=== PATIENT | female | born 1935 | race African-American/Black ===

== ENCOUNTER 2016-04-15 11:29 | Observation (INO) | payer MEDICARE, MEDICAID ==
[2016-04-15] MEDS ORDERED: ASPIRIN 81 MG TABLET, CHEWABLE PO ONE (11:35)
--- NOTE | 2016-04-15 11:53 | ER Document Report ---
ED Medical Screen (RME) - General Stated Complaint: CHEST TIGHTNESS Time seen by provider: 11:51 Mode of Arrival: Ambulatory Information source: Patient Notes: 80-year-old female presents to ED for chest pressure running down her left arm last night for the about 30 minutes. She denies pain pressure or shortness of breath at this time. She states she has a history of having 2 heart attacks the last one was in 06. She states she had a stent at that time. I have greeted and performed a rapid initial assessment of this patient. A comprehensive ED assessment and evaluation of the patient, analysis of test results and completion of medical decision making process will be conducted by an additional ED providers. TRAVEL OUTSIDE OF THE [place] IN LAST 30 DAYS: No - Related Data Allergies/Adverse Reactions: hydroxyzine [From Vistaril] Adverse Reaction (Verified 11/20/15 14:31) Hallucinations Past Medical History - Past Medical History Cardiac Medical History: Reports: Hx Heart Attack - X2, Hx Hypercholesterolemia , Hx Hypertension - MEDICATED Pulmonary Medical History: Denies: Hx Asthma Neurological Medical History: Denies: Hx Cerebrovascular Accident, Hx Seizures GI Medical History: Denies: Hx Hepatitis, Hx Hiatal Hernia, Hx Ulcer Infectious Medical History: Denies: Hx Hepatitis Past Surgical History: Denies: Hx Hysterectomy, Hx Mastectomy, Hx Open Heart Surgery, Hx Pacemaker - Immunizations Hx Diphtheria, Pertussis, Tetanus Vaccination: Yes
[2016-04-15 12:16] LABS: ABSOLUTE EOSINOPHILS # (AUTO) 0.2 10^3/uL (0.0-0.6); ABSOLUTE LYMPHOCYTES (AUTO) 1.1 10^3/uL (0.5-4.7); ABSOLUTE MONOCYTES (AUTO) 0.3 10^3/uL (0.1-1.4); ABSOLUTE NEUT (AUTO) 3.8 10^3/uL (1.7-8.2); BASOPHILS % (AUTO) 0.8 % (0-2); EOSINOPHILS % (AUTO) 2.8 % (0-6); HEMATOCRIT 39.2 % (36.0-47.0); HEMOGLOBIN 12.9 g/dL (12.0-15.5); HGB HCT DIFFERENCE -0.5; LYMPHOCYTES % (AUTO) 19.9 % (13-45); MEAN CORPUSCULAR HEMOGLOBIN 28.3 pg (27.0-33.4); MEAN CORPUSCULAR HGB CONC 32.8 g/dL (32.0-36.0); MEAN CORPUSCULAR VOLUME 86 fl (80-97); MONOCYTES % (AUTO) 5.9 % (3-13); RED BLOOD COUNT 4.54 10^6/uL (3.72-5.28); RED CELL DISTRIBUTION WIDTH 13.9 % (11.5-14.0); SEGMENTED NEUTROPHILS % (AUTO) 70.6 % (42-78); WHITE BLOOD COUNT 5.4 10^3/uL (4.0-10.5)
--- NOTE | 2016-04-15 12:23 | ER Document Report ---
ED Cardiac - General Chief Complaint: Chest Pain Stated Complaint: CHEST TIGHTNESS Mode of Arrival: Ambulatory Notes: This is an 80-year-old female with prior medical history significant for coronary artery disease, last stent placed in 2005, who presents complaining of 2-3 weeks of episodic chest pain. She states the pain is very reminiscent of her prior [place]. She states it is a dull pressure across the left anterior chest and radiating down her left arm. She states each episode lasts about 30 minutes. She takes aspirin when these episodes occur and it seems to resolve spontaneously. She does not use nitroglycerin at home. She was seen at her doctor's office this morning and referred to the ER for further evaluation. She is pain-free at this time. TRAVEL OUTSIDE OF THE [place] IN LAST 30 DAYS: No - Related Data Allergies/Adverse Reactions: hydroxyzine [From Vistaril] Adverse Reaction (Verified 04/15/16 11:53) Hallucinations Past Medical History - General Information source: Patient - Social History Smoking Status: Never Smoker Chew tobacco use (# tins/day): No Frequency of alcohol use: None Drug Abuse: None Family History: Reviewed & Not Pertinent Patient has suicidal ideation: No Patient has homicidal ideation: No - Past Medical History Cardiac Medical History: Reports: Hx Heart Attack - X2, Hx Hypercholesterolemia , Hx Hypertension - MEDICATED Pulmonary Medical History: Denies: Hx Asthma Neurological Medical History: Denies: Hx Cerebrovascular Accident, Hx Seizures Renal/ Medical History: Denies: Hx Peritoneal Dialysis GI Medical History: Denies: Hx Hepatitis, Hx Hiatal Hernia, Hx Ulcer Infectious Medical History: Denies: Hx Hepatitis Past Surgical History: Denies: Hx Hysterectomy, Hx Mastectomy, Hx Open Heart Surgery, Hx Pacemaker - Immunizations Hx Diphtheria, Pertussis, Tetanus Vaccination: Yes Review of Systems - Review of Systems Constitutional: denies: Fever EENT: denies: Throat pain Cardiovascular: denies: Edema Gastrointestinal: denies: Abdominal pain Genitourinary: denies: Flank pain Musculoskeletal: denies: Leg swelling Skin: denies: Rash Neurological/Psychological: denies: Weakness, Numbness, Tingling Physical Exam - Vital signs Vitals: Temp Pulse Resp BP Pulse Ox 97.8 F 64 19 196/84 H 100 04/15/16 11:49 04/15/16 11:49 04/15/16 11:49 04/15/16 11:49 04/15/16 11:49 - Notes Notes: GENERAL: Pleasant, frail elderly female who is well-appearing and in no acute distress. HEAD: Atraumatic, normocephalic. EYES: Pupils equal round and reactive to light, extraocular movements intact, sclera anicteric, conjunctiva are normal. ENT: nares patent, oropharynx clear without exudates. Moist mucous membranes. NECK: Normal range of motion, supple without lymphadenopathy or JVD. LUNGS: Breath sounds clear to auscultation bilaterally and equal. No wheezes rales or rhonchi. HEART: Regular rate and rhythm without murmurs, rubs or gallops. ABDOMEN: Soft, nontender, normoactive bowel sounds. No guarding, no rebound. No masses appreciated. EXTREMITIES: Normal range of motion, no pitting or edema. No clubbing or cyanosis. NEUROLOGICAL: Cranial nerves II through XII grossly intact. Normal speech, normal gait. PSYCH: Normal mood, normal affect. SKIN: Warm, Dry, normal turgor, no rashes or lesions noted. Course - Vital Signs Vital signs: Temp Pulse Resp BP Pulse Ox 97.8 F 64 19 196/84 H 100 04/15/16 11:49 04/15/16 11:49 04/15/16 11:49 04/15/16 11:49 04/15/16 12:29 - Laboratory Result Diagrams: 04/15/16 12:00 04/15/16 12:00 Laboratory results interpreted by me: 04/15/16 12:00 Est GFR (Non-Af Amer) 59 L Creatine Kinase 142 H - EKG Interpretation by Pa EKG shows normal: Sinus rhythm Heart block present: 1st Degree - Similar in appearance to prior EKG from Discharge - Discharge Clinical Impression: Chest pain Qualifiers: Chest pain type: unspecified Qualified Code(s): R07.9 - Chest pain, unspecified Condition: Good Disposition: ADMITTED OBSERVATION Admitting Provider: [facility] Unit Admitted: Telemetry
[2016-04-15 12:45] LABS: ALANINE AMINOTRANSFERASE 17 U/L (9-52); ALBUMIN 3.9 g/dL (3.5-5.0); ALKALINE PHOSPHATASE 72 U/L (38-126); ANION GAP 9 (5-19); ASPARTATE AMINO TRANSFERASE 24 U/L (14-36); BILIRUBIN,TOTAL 0.6 mg/dL (0.2-1.3); BLOOD UREA NITROGEN 10 mg/dL (7-20); CALCIUM 9.4 mg/dL (8.4-10.2); CARBON DIOXIDE 27 mmol/L (22-30); CHLORIDE 103 mmol/L (98-107); CREATINE KINASE 142 U/L (30-135); CREATININE RESULT 0.92 mg/dL (0.52-1.25); GLUCOSE 90 mg/dL (75-110); LIPASE 158.2 U/L (23-300); MAGNESIUM 2.1 mg/dL (1.6-2.3); POTASSIUM 4.2 mmol/L (3.6-5.0); SODIUM 139.4 mmol/L (137-145); TOTAL PROTEIN 7.1 g/dL (6.3-8.2)
[2016-04-15 12:54] LABS: CREATINE KINASE MB 1.28 ng/mL (<4.55)
--- NOTE | 2016-04-15 12:56 | EKG REPORT ---
SEVERITY:- ABNORMAL ECG - SINUS RHYTHM FIRST DEGREE AV BLOCK PROBABLE INFERIOR INFARCT, AGE INDETERMINATE NONSPECIFIC ST-T CHANGES ANTEROLAT LEADS : Confirmed by: Agustín Murguia MD 15-Apr-2016 12:55:23
[2016-04-15 12:57] LABS: TROPONIN I < 0.012 ng/mL
[2016-04-15] MEDS ORDERED: (PENDING PHARMACY ID) (Carvedilol [Coreg 25 Mg Tablet] 1 TAB) PO SCH (13:45)
[2016-04-15 14:20] LABS: PROTHROMBIN TIME 13.4 SEC (11.4-15.4)
[2016-04-15 14:21] LABS: PARTIAL THROMBOPLASTIN TIME 29.9 SEC (23.5-35.8)
[2016-04-15] MEDS ORDERED: LOSARTAN POTASSIUM 50 MG TABLET PO ONE (14:30)
[2016-04-15] MEDS ORDERED: ASPIRIN 81 MG TABLET, ENT COATED PO ONE (14:30)
[2016-04-15] MEDS ORDERED: CARVEDILOL 12.5 MG TABLET PO ONE (15:00)
--- NOTE | 2016-04-15 17:57 | XCELERA REPORT ---
[address] [address] Transthoracic Echocardiogram Report Name: ADAN GARDUNO Age: 80 yrs Gender: Female : 1935 Patient Status: Inpatient Patient Location: \S\16\S\A Study Date: 04/15/2016 02:40 PM Height: 63 in Weight: 113 lb BSA: 1.5 m2 Procedure: A two-dimensional transthoracic echocardiogram with color flow and Doppler was performed. Study Quality: Fair. Reason For Study: CP History: Chest pain. Ordering Physician: FISH SEPULVEDA Performed By: Alexus Cooley Interpretation Summary The left ventricle is normal in size. There is normal left ventricular wall thickness. LV EF is 65% Left ventricular systolic function is normal. Doppler measurements suggest impaired left ventricular relaxation, which is associated with grade I/IV or mild diastolic dysfunction The left ventricular wall motion is normal. There is no thrombus. The left atrial size is normal. There is no evidence of mitral valve prolapse. There is no vegetation seen on the mitral valve. There is no mitral valve stenosis. There is a moderate amount of mitral regurgitation The aortic valve is mildly calcified There is no aortic valvular vegetation. There is no aortic valve stenosis There is no LVOT obstruction. There is a mild amount of aortic regurgitation There is no tricuspid stenosis. There is a mild amount of tricuspid regurgitation Right ventricular systolic pressure is normal. RVSP is 27 mm of Hg , with RA mean of 5. There is no pericardial effusion. MMode/2D Measurements \T\ Calculations RVDd: 2.3 cm LVIDd: 4.1 cm FS: 35.2 % Ao root diam: 2.9 cm IVSd: 0.96 cm LVIDs: 2.7 cm EDV(Teich): 74.0 ml LVPWd: 0.94 cmESV(Teich): 25.9 ml Ao root area: 6.6 cm2 EF(Teich): 65.0 % LA dimension: 3.0 cm LVOT diam: 2.0 cm LVOT area: 3.2 cm2 Doppler Measurements \T\ Calculations MV E max mayuri: MV P1/2t max mayuri: Ao V2 max: AI max mayuri: 59.0 cm/sec 59.0 cm/sec 107.3 cm/sec 400.1 cm/sec MV A max mayuri: MV P1/2t: 66.8 msec Ao max PG: AI max P.0 cm/sec MVA(P1/2t): 3.3 cm2 4.6 mmHg 64.0 mmHg MV E/A: 0.69 MV dec slope: JAYJAY(V,D): 2.7 cm2 AI dec slope: 258.6 cm/sec2 199.8 cm/sec2 MV dec time: AI P1/2t: 0.24 sec 586.6 msec LV V1 max PG: PA V2 max: TR max mayuri: 3.4 mmHg 59.3 cm/sec 231.9 cm/sec LV V1 max: PA max P.4 mmHg TR max P.5 cm/sec 21.5 mmHg Left Ventricle The left ventricle is normal in size. There is normal left ventricular wall thickness. LV EF is 65%. Left ventricular systolic function is normal. Doppler measurements suggest impaired left ventricular relaxation, which is associated with grade I/IV or mild diastolic dysfunction. The left ventricular wall motion is normal. There is no thrombus. Right Ventricle The right ventricle is normal in size and function. Atria The right atrium is normal. The left atrial size is normal. Mitral Valve There is no evidence of mitral valve prolapse. There is no vegetation seen on the mitral valve. There is no mitral valve stenosis. There is a moderate amount of mitral regurgitation. Aortic Valve The aortic valve is trileaflet. The aortic valve opens well. The aortic valve is mildly calcified. There is no aortic valvular vegetation. There is no aortic valve stenosis. There is no LVOT obstruction. There is a mild amount of aortic regurgitation. Tricuspid Valve There is no tricuspid stenosis. There is a mild amount of tricuspid regurgitation. Right ventricular systolic pressure is normal. RVSP is 27 mm of Hg , with RA mean of 5. Pulmonic Valve There is no pulmonic valvular stenosis. There is no pulmonic valvular regurgitation. Great Vessels The aortic root is normal size. Effusions There is no pericardial effusion. : FISH SEPULVEDA > Kandi Sandhu
[2016-04-15 20:25] LABS: CREATINE KINASE MB 1.05 ng/mL (<4.55)
[2016-04-15 20:29] LABS: TROPONIN I < 0.012 ng/mL
[2016-04-15] MEDS: CARVEDILOL 12.5 MG TABLET PO SCH (21:57)
[2016-04-15] MEDS: SIMVASTATIN 40 MG TABLET PO SCH (21:58)
[2016-04-16 02:37] LABS: ABSOLUTE BASOPHILS # (AUTO) 0.1 10^3/uL (0.0-0.2); ABSOLUTE EOSINOPHILS # (AUTO) 0.1 10^3/uL (0.0-0.6); ABSOLUTE LYMPHOCYTES (AUTO) 0.8 10^3/uL (0.5-4.7); ABSOLUTE MONOCYTES (AUTO) 0.3 10^3/uL (0.1-1.4); ABSOLUTE NEUT (AUTO) 3.5 10^3/uL (1.7-8.2); BASOPHILS % (AUTO) 1.4 % (0-2); EOSINOPHILS % (AUTO) 2.8 % (0-6); HEMATOCRIT 34.7 % (36.0-47.0); HEMOGLOBIN 11.5 g/dL (12.0-15.5); HGB HCT DIFFERENCE -0.2; LYMPHOCYTES % (AUTO) 16.8 % (13-45); MEAN CORPUSCULAR HEMOGLOBIN 28.2 pg (27.0-33.4); MEAN CORPUSCULAR HGB CONC 33.1 g/dL (32.0-36.0); MEAN CORPUSCULAR VOLUME 85 fl (80-97); MONOCYTES % (AUTO) 5.4 % (3-13); RED BLOOD COUNT 4.08 10^6/uL (3.72-5.28); RED CELL DISTRIBUTION WIDTH 13.7 % (11.5-14.0); SEGMENTED NEUTROPHILS % (AUTO) 73.6 % (42-78); WHITE BLOOD COUNT 4.8 10^3/uL (4.0-10.5)
[2016-04-16 03:00] LABS: ANION GAP 9 (5-19); BLOOD UREA NITROGEN 14 mg/dL (7-20); CALCIUM 8.9 mg/dL (8.4-10.2); CARBON DIOXIDE 27 mmol/L (22-30); CHLORIDE 104 mmol/L (98-107); CREATININE RESULT 0.86 mg/dL (0.52-1.25); GLUCOSE 99 mg/dL (75-110); POTASSIUM 3.9 mmol/L (3.6-5.0); SODIUM 139.9 mmol/L (137-145)
[2016-04-16 03:11] LABS: CREATINE KINASE MB 0.77 ng/mL (<4.55)
[2016-04-16 03:13] LABS: TROPONIN I < 0.012 ng/mL
[2016-04-16] MEDS: ASPIRIN 81 MG TABLET, ENT COATED PO SCH (09:50)
[2016-04-16] MEDS: ENOXAPARIN SODIUM INJ 40 MG/0.4 ML DISP.SYRIN SUBCUT SCH (09:50)
[2016-04-16] MEDS: CARVEDILOL 12.5 MG TABLET PO SCH ×2 (09:51→22:42)
[2016-04-16] MEDS: LOSARTAN POTASSIUM 50 MG TABLET PO SCH (09:52)
--- NOTE | 2016-04-16 10:55 | EKG REPORT ---
SEVERITY:- ABNORMAL ECG - SINUS RHYTHM PROBABLE INFERIOR INFARCT, OLD CONSIDER ANTEROSEPTAL INFARCT LATERAL LEADS ARE ALSO INVOLVED : Confirmed by: Agustín Murguia MD 16-Apr-2016 10:54:55
--- NOTE | 2016-04-16 17:45 | PDOC H&P ---
History of Present Illness Admission Date/PCP: 04/15/16 14:15 FISH SEPULVEDA, History of Present Illness: ADAN GARDUNO is a 80 year old female with history of coronary artery disease , she came to the office she complained of chest pressure with radiation to the left upper extremities. She stated that the chest pressure is similar to the chest pressure. She had the last time when she had myocardial infarction. A 12 -lead EKG was done in the office it showed sinus rhythm with Q-wave in inferior leads and nonspecific ST segment changes in precordial leads. She was advised to go to the emergency room for further evaluation. She was seen in emergency room she was evaluated and Hospital admission was advised. Past Medical History Cardiac Medical History: Reports: Myocardial Infarction - X2, Hyperlipidema, Hypertension - MEDICATED Past Surgical History Past Surgical History: Reports: Coronary Stent Social History Information Source: Patient Smoking Status: Never Smoker Frequency of Alcohol Use: None Hx Recreational Drug Use: No Hx Prescription Drug Abuse: No - Advance Directive Resuscitation Status: Full Code Family History Family History: Reviewed & Not Pertinent Parental Family History Reviewed: Yes Children Family History Reviewed: Yes Sibling(s) Family History Reviewed.: Yes Medication/Allergy Home Medications: Aspirin [Ecotrin] 81 mg PO DAILY PRN 04/15/16 Carvedilol [Coreg 25 mg Tablet] 25 mg PO Q12 04/15/16 Losartan Potassium [Cozaar 100 mg Tablet] 100 mg PO DAILY 04/15/16 Simvastatin [Simvastatin] 40 mg PO QHS 04/15/16 Allergies/Adverse Reactions: hydroxyzine [From Vistaril] Adverse Reaction (Verified 04/15/16 11:53) Hallucinations Review of Systems Constitutional: ABSENT: chills, fever(s), headache(s), weight gain, weight loss Eyes: ABSENT: visual disturbances Ears: ABSENT: hearing changes Cardiovascular: PRESENT: chest pain. ABSENT: as per HPI, dyspnea on exertion, edema, orthropnea, palpitations, other Respiratory: ABSENT: cough, hemoptysis Gastrointestinal: ABSENT: abdominal pain, constipation, diarrhea, hematemesis, hematochezia, nausea, vomiting Genitourinary: ABSENT: dysuria, hematuria Musculoskeletal: ABSENT: joint swelling Integumentary: ABSENT: rash, wounds Neurological: ABSENT: abnormal gait, abnormal speech, confusion, dizziness, focal weakness, syncope Psychiatric: ABSENT: anxiety, depression, homidical ideation, suicidal ideation Endocrine: ABSENT: cold intolerance, heat intolerance, menstrual abnormalities, polydipsia, polyuria Hematologic/Lymphatic: ABSENT: easy bleeding, easy bruising, lymphadenopathy Physical Exam Vital Signs: Temp Pulse Resp BP Pulse Ox 98.4 F 75 20 129/62 H 99 04/16/16 12:07 04/16/16 14:00 04/16/16 12:07 04/16/16 12:07 04/16/16 12:07 Intake & Output 04/15/16 04/16/16 04/17/16 06:59 06:59 06:59 Intake Total 833 660 Output Total 0 150 Balance 833 510 Weight 52.2 kg General appearance: PRESENT: no acute distress, well-developed, well-nourished Head exam: PRESENT: atraumatic, normocephalic Eye exam: PRESENT: conjunctiva pink, EOMI, PERRLA Ear exam: PRESENT: normal external ear exam Mouth exam: PRESENT: moist, tongue midline Neck exam: PRESENT: full ROM Respiratory exam: PRESENT: clear to auscultation lamar Cardiovascular exam: PRESENT: RRR, +S1, +S2 Pulses: PRESENT: normal dorsalis pedis pul, +2 pedal pulses bilateral Vascular exam: PRESENT: normal capillary refill GI/Abdominal exam: PRESENT: normal bowel sounds, soft Rectal exam: PRESENT: deferred Neurological exam: PRESENT: alert, awake, oriented to person, oriented to place , oriented to time, oriented to situation, CN II-XII grossly intact Psychiatric exam: PRESENT: appropriate affect, normal mood Skin exam: PRESENT: dry, intact, warm Results Laboratory Results: 04/16/16 02:10 04/16/16 02:10 04/16/16 04/16/16 02:10 02:10 WBC 4.8 RBC 4.08 Hgb 11.5 L Hct 34.7 L MCV 85 MCH 28.2 MCHC 33.1 RDW 13.7 Plt Count 195 Seg Neutrophils % 73.6 Lymphocytes % 16.8 Monocytes % 5.4 Eosinophils % 2.8 Basophils % 1.4 Absolute Neutrophils 3.5 Absolute Lymphocytes 0.8 Absolute Monocytes 0.3 Absolute Eosinophils 0.1 Absolute Basophils 0.1 Sodium 139.9 Potassium 3.9 Chloride 104 Carbon Dioxide 27 Anion Gap 9 BUN 14 Creatinine 0.86 Est GFR ( Amer) > 60 Est GFR (Non-Af Amer) > 60 Glucose 99 Calcium 8.9 04/15/16 04/16/16 19:44 02:10 CK-MB (CK-2) 1.05 0.77 Troponin I < 0.012 < 0.012 Impressions: Chest X-Ray 04/15/16 11:35 IMPRESSION: No acute changes Assessment & Plan - Diagnosis (1) Coronary artery disease Qualifiers: Coronary Disease-Associated Artery/Lesion type: [place] artery [place] vs. transplanted heart: [place] heart Associated angina: with unspecified angina Qualified Code(s): I25.119 - Atherosclerotic heart disease of [place] coronary artery with unspecified angina pectoris Is this a current diagnosis for this admission?: YesPlan: The chest symptoms is suspicious for anginal like pain, she will be admitted to the hospital. Serial enzymes will be drawn to eliminate acute cardiac infarction and a nuclear stress will be done before discharge (2) Chest pain Qualifiers: Chest pain type: unspecified Qualified Code(s): R07.9 - Chest pain, unspecified Is this a current diagnosis for this admission?: Yes
[2016-04-16] MEDS: SIMVASTATIN 40 MG TABLET PO SCH (22:43)
[2016-04-16 23:54] LABS: APPEARANCE,URINE SLIGHTLY-CLOUDY; BILIRUBIN,URINE NEGATIVE (NEGATIVE); GLUCOSE, URINE NEGATIVE (NEGATIVE); KETONES,URINE NEGATIVE (NEGATIVE); LEUKOCYTE ESTERASE,URINE LARGE (NEGATIVE); NITRITE,URINE NEGATIVE (NEGATIVE); PROTEIN,URINE NEGATIVE (NEGATIVE); URINE SPECIFIC GRAVITY 1.004; UROBILINOGEN,URINE NEGATIVE mg/dL (<2.0)
[2016-04-17 05:47] LABS: ABSOLUTE EOSINOPHILS # (AUTO) 0.1 10^3/uL (0.0-0.6); ABSOLUTE LYMPHOCYTES (AUTO) 0.8 10^3/uL (0.5-4.7); ABSOLUTE MONOCYTES (AUTO) 0.3 10^3/uL (0.1-1.4); ABSOLUTE NEUT (AUTO) 3.3 10^3/uL (1.7-8.2); BASOPHILS % (AUTO) 0.7 % (0-2); EOSINOPHILS % (AUTO) 3.3 % (0-6); HEMATOCRIT 36.5 % (36.0-47.0); HEMOGLOBIN 12.2 g/dL (12.0-15.5); HGB HCT DIFFERENCE 0.1; LYMPHOCYTES % (AUTO) 18.4 % (13-45); MEAN CORPUSCULAR HEMOGLOBIN 28.5 pg (27.0-33.4); MEAN CORPUSCULAR HGB CONC 33.6 g/dL (32.0-36.0); MEAN CORPUSCULAR VOLUME 85 fl (80-97); MONOCYTES % (AUTO) 5.7 % (3-13); RED BLOOD COUNT 4.29 10^6/uL (3.72-5.28); RED CELL DISTRIBUTION WIDTH 13.8 % (11.5-14.0); SEGMENTED NEUTROPHILS % (AUTO) 71.9 % (42-78); WHITE BLOOD COUNT 4.5 10^3/uL (4.0-10.5)
[2016-04-17 06:17] LABS: ANION GAP 12 (5-19); BLOOD UREA NITROGEN 11 mg/dL (7-20); CALCIUM 9.1 mg/dL (8.4-10.2); CARBON DIOXIDE 24 mmol/L (22-30); CHLORIDE 104 mmol/L (98-107); CREATININE RESULT 0.85 mg/dL (0.52-1.25); GLUCOSE 93 mg/dL (75-110); POTASSIUM 3.8 mmol/L (3.6-5.0); SODIUM 140.2 mmol/L (137-145)
[2016-04-17] MEDS: ENOXAPARIN SODIUM INJ 40 MG/0.4 ML DISP.SYRIN SUBCUT SCH (09:37)
[2016-04-17] MEDS: CARVEDILOL 12.5 MG TABLET PO SCH ×2 (09:39→22:26)
[2016-04-17] MEDS: ASPIRIN 81 MG TABLET, ENT COATED PO SCH (09:40)
[2016-04-17] MEDS: LOSARTAN POTASSIUM 50 MG TABLET PO SCH (09:40)
--- NOTE | 2016-04-17 18:04 | PDOC PROGRESS REPORT ---
Subjective Progress Note for:: 04/17/16 Subjective:: Patient is scheduled for stress test tomorrow morning Physical Exam Vital Signs: Temp Pulse Resp BP Pulse Ox 98.3 F 81 20 141/68 H 100 04/17/16 12:00 04/17/16 14:00 04/17/16 12:00 04/17/16 12:00 04/17/16 07:41 Intake & Output 04/16/16 04/17/16 04/18/16 06:59 06:59 06:59 Intake Total 833 1351 360 Output Total 0 550 Balance 833 801 360 Weight 52.2 kg 52.3 kg General appearance: PRESENT: no acute distress, well-developed, well-nourished Head exam: PRESENT: atraumatic, normocephalic Eye exam: PRESENT: conjunctiva pink, EOMI, PERRLA Neck exam: PRESENT: full ROM Respiratory exam: PRESENT: clear to auscultation lamar Cardiovascular exam: PRESENT: RRR, +S1, +S2 Pulses: PRESENT: normal dorsalis pedis pul, +2 pedal pulses bilateral Vascular exam: PRESENT: normal capillary refill GI/Abdominal exam: PRESENT: normal bowel sounds, soft Rectal exam: PRESENT: deferred Neurological exam: PRESENT: alert Skin exam: PRESENT: dry, intact, warm Results Laboratory Results: 04/17/16 05:11 04/17/16 05:11 04/16/16 04/17/16 04/17/16 23:15 05:11 05:11 WBC 4.5 RBC 4.29 Hgb 12.2 Hct 36.5 MCV 85 MCH 28.5 MCHC 33.6 RDW 13.8 Plt Count 220 Seg Neutrophils % 71.9 Lymphocytes % 18.4 Monocytes % 5.7 Eosinophils % 3.3 Basophils % 0.7 Absolute Neutrophils 3.3 Absolute Lymphocytes 0.8 Absolute Monocytes 0.3 Absolute Eosinophils 0.1 Absolute Basophils 0.0 Sodium 140.2 Potassium 3.8 Chloride 104 Carbon Dioxide 24 Anion Gap 12 BUN 11 Creatinine 0.85 Est GFR ( Amer) > 60 Est GFR (Non-Af Amer) > 60 Glucose 93 Calcium 9.1 Urine Color YELLOW Urine Appearance SLIGHTLY-CLOUDY Urine pH 6.0 Ur Specific [place] 1.004 Urine Protein NEGATIVE Urine Glucose (UA) NEGATIVE Urine Ketones NEGATIVE Urine Blood MODERATE H Urine Nitrite NEGATIVE Ur Leukocyte Esterase LARGE H Urine WBC (Auto) 47 Urine RBC (Auto) 1 04/15/16 04/16/16 19:44 02:10 CK-MB (CK-2) 1.05 0.77 Troponin I < 0.012 < 0.012 Impressions: Chest X-Ray 04/15/16 11:35 IMPRESSION: No acute changes Assessment & Plan - Diagnosis (1) Coronary artery disease Qualifiers: Coronary Disease-Associated Artery/Lesion type: [place] artery [place] vs. transplanted heart: [place] heart Associated angina: with unspecified angina Qualified Code(s): I25.119 - Atherosclerotic heart disease of [place] coronary artery with unspecified angina pectoris Is this a current diagnosis for this admission?: Yes (2) Chest pain Qualifiers: Chest pain type: unspecified Qualified Code(s): R07.9 - Chest pain, unspecified Is this a current diagnosis for this admission?: Yes
[2016-04-17] MEDS: SIMVASTATIN 40 MG TABLET PO SCH (22:27)
[2016-04-18 05:44] LABS: ABSOLUTE EOSINOPHILS # (AUTO) 0.1 10^3/uL (0.0-0.6); ABSOLUTE LYMPHOCYTES (AUTO) 0.9 10^3/uL (0.5-4.7); ABSOLUTE MONOCYTES (AUTO) 0.3 10^3/uL (0.1-1.4); ABSOLUTE NEUT (AUTO) 3.2 10^3/uL (1.7-8.2); EOSINOPHILS % (AUTO) 2.6 % (0-6); HEMATOCRIT 37.2 % (36.0-47.0); HEMOGLOBIN 12.1 g/dL (12.0-15.5); HGB HCT DIFFERENCE -0.9; LYMPHOCYTES % (AUTO) 20.2 % (13-45); MEAN CORPUSCULAR HEMOGLOBIN 28.1 pg (27.0-33.4); MEAN CORPUSCULAR HGB CONC 32.5 g/dL (32.0-36.0); MEAN CORPUSCULAR VOLUME 86 fl (80-97); SEGMENTED NEUTROPHILS % (AUTO) 69.2 % (42-78); WHITE BLOOD COUNT 4.7 10^3/uL (4.0-10.5)
[2016-04-18 05:52] LABS: ANION GAP 11 (5-19); BLOOD UREA NITROGEN 12 mg/dL (7-20); CARBON DIOXIDE 25 mmol/L (22-30); CHLORIDE 104 mmol/L (98-107); CREATININE RESULT 0.86 mg/dL (0.52-1.25); GLUCOSE 72 mg/dL (75-110); POTASSIUM 4.1 mmol/L (3.6-5.0); SODIUM 140.3 mmol/L (137-145)
[2016-04-18] MEDS: ENOXAPARIN SODIUM INJ 40 MG/0.4 ML DISP.SYRIN SUBCUT SCH (11:46)
[2016-04-18] MEDS: ASPIRIN 81 MG TABLET, ENT COATED PO SCH (11:46)
[2016-04-18] MEDS: LOSARTAN POTASSIUM 50 MG TABLET PO SCH (11:46)
[2016-04-18] MEDS: CARVEDILOL 12.5 MG TABLET PO SCH (11:47)
[2016-04-18] MEDS ORDERED: REGADENOSON INJ 0.4 MG/5 ML DISP.SYRIN IV ONE (12:00)
--- NOTE | 2016-04-18 16:23 | PDOC DISCHARGE SUMMARY ---
General - Admit/Disc Date/PCP Admission Date/Primary Care Provider: 04/15/16 14:15 FISH SEPULVEDA, Discharge Date: 04/18/16 - Discharge Diagnosis (1) Coronary artery disease Is this a current diagnosis for this admission?: Yes (2) Chest pain Is this a current diagnosis for this admission?: Yes - Additional Information Resuscitation Status: Full Code Home Medications: Aspirin [Ecotrin] 81 mg PO DAILY PRN 04/15/16 Carvedilol [Coreg 25 mg Tablet] 25 mg PO Q12 04/15/16 Losartan Potassium [Cozaar 100 mg Tablet] 100 mg PO DAILY 04/15/16 Simvastatin 40 mg PO QHS 04/15/16 History of Present Illness History of Present Illness: ADAN GARDUNO is a 80 year old female with history of coronary artery disease , she came to the office she complained of chest pressure with radiation to the left upper extremities. She stated that the chest pressure is similar to the chest pressure She had the last time when she had myocardial infarction. A 12- lead EKG was done in the office it showed sinus rhythm with Q-wave in inferior leads and nonspecific ST segment changes in precordial leads. She was advised to go to the emergency room for further evaluation. She was seen in emergency room she was evaluated and Hospital admission was advised. Hospital Course Hospital Course: Patient was admitted because of suspicious chest pain, she had a 2-D echo done and it was normal. She also had a lexiscan Cardiolite stress test done and was normal. Cardiac enzymes were negative for acute VA Physical Exam Vital Signs: Temp Pulse Resp BP Pulse Ox 98.2 F 62 18 153/70 H 100 04/18/16 12:17 04/18/16 12:17 04/18/16 12:17 04/18/16 12:17 04/18/16 12:17 Intake & Output 04/17/16 04/18/16 04/19/16 06:59 06:59 06:59 Intake Total 1351 1613 0 Output Total 550 250 Balance 801 1363 0 Weight 52.3 kg 52.9 kg General appearance: PRESENT: no acute distress, well-developed, well-nourished Head exam: PRESENT: atraumatic, normocephalic Eye exam: PRESENT: conjunctiva pink, EOMI, PERRLA Ear exam: PRESENT: normal external ear exam Mouth exam: PRESENT: moist, tongue midline Neck exam: PRESENT: full ROM Cardiovascular exam: PRESENT: RRR Pulses: PRESENT: normal dorsalis pedis pul, +2 pedal pulses bilateral Vascular exam: PRESENT: normal capillary refill GI/Abdominal exam: PRESENT: normal bowel sounds, soft Rectal exam: PRESENT: deferred Neurological exam: PRESENT: alert, awake, oriented to person, oriented to place , oriented to time, oriented to situation, CN II-XII grossly intact Psychiatric exam: PRESENT: appropriate affect, normal mood Skin exam: PRESENT: dry, intact, warm Results Laboratory Results: 04/18/16 04:51 04/18/16 04:51 04/18/16 04/18/16 04:51 04:51 WBC 4.7 RBC 4.30 Hgb 12.1 Hct 37.2 MCV 86 MCH 28.1 MCHC 32.5 RDW 14.0 Plt Count 202 Seg Neutrophils % 69.2 Lymphocytes % 20.2 Monocytes % 7.0 Eosinophils % 2.6 Basophils % 1.0 Absolute Neutrophils 3.2 Absolute Lymphocytes 0.9 Absolute Monocytes 0.3 Absolute Eosinophils 0.1 Absolute Basophils 0.0 Sodium 140.3 Potassium 4.1 Chloride 104 Carbon Dioxide 25 Anion Gap 11 BUN 12 Creatinine 0.86 Est GFR ( Amer) > 60 Est GFR (Non-Af Amer) > 60 Glucose 72 L Calcium 9.0 04/15/16 04/16/16 19:44 02:10 CK-MB (CK-2) 1.05 0.77 Troponin I < 0.012 < 0.012 Impressions: Chest X-Ray 04/15/16 11:35 IMPRESSION: No acute changes
[2016-04-18 16:24] VITALS: BP 143/64
--- NOTE | 2016-04-19 14:12 | DRAGON STRESS TEST REPORT ---
Intravenous LexiScan Cardiolite stress test using single photon emision computerized tomographic. Date of procedure: 04/18/2016. Ordering Physician: . Indication: Syncope. Coronary risk factors: Age,hypertension, and dyslipidemia. Resting EKG: Sinus Rhythm.Diffuse NS T flattening changes. Stress EKG: No changes of ischemia. The patient had no chest pain ,or discomfort.No arrhythmias. Reason for termination: Protocol. The patient had no chest pain or discomfort.She became emotional with abdominal pain, and muscle trembling.Symptoms subsided after she drank Pepsi. Conclusions: Normal EKG and hemodynamic response to IV Lexiscan. Nuclear data: At rest the patient was given 10.61 millicuries of technetium 99 sestamibi injected intravenously. As per protocol rest non gated SPECT images were obtained. Subsequently the patient was given intravenous Lexiscan at a dose of 0.4 mg in 5 mL intravenously, followed by flush with normal saline. Subsequently the stress dose of 30.6 millicuries of technetium 99 sestamibi was injected intravenously. As per protocol stress gated images were obtained. Nuclear interpretation: Review of images showed that all segments of the myocardium had normal perfusion at rest, and normal perfusion post stress with IV LexiScan. All segments of the myocardium had normal motion, contraction, and thickening by gated study. T. I D. ratio was normal at 1.01 . Computer read rest, and stress left ventricular ejection fraction were 77 %, and 4 SL PRN., respectively. Visually both the stress and rest ejection fractions were normal , and greater than 65%. 1. There is no scintigraphic evidence of Lexiscan induced myocardial ischemia. 2. There is no scintigraphic evidence of myocardial infarction/scar. Recommendations: Aggressive risk factor modification, and treating the underlying co- morbidities MTDD
== END 2016-04-18 17:19 | disposition home or self-care (01) ==
LOC: ER 11:29 → INTOOBSV 14:15 → EH 14:15 → 3S 16:35
PROVIDERS: ADMIT Internal Medicine; ATTEND Internal Medicine
DX: I25.10 Atherosclerotic heart disease of native coronary artery without angina pectoris (principal); R07.9 Chest pain, unspecified; Z79.82 Long term (current) use of aspirin; I25.2 Old myocardial infarction; E78.5 Hyperlipidemia, unspecified; I10 Essential (primary) hypertension; Z95.5 Presence of coronary angioplasty implant and graft
CPT/HCPCS: 93005 ×2; 99285; 36415 ×4; 82553 ×2; 82550; 83690; 83735; 85025 ×4; 85610; 85730; 80048 ×3; 80053; 81001; 84484 ×2; 93306; 93017; 71020; 78452; 93010 ×2; G0378 ×5; A9500; J2785; A9270 ×14; J1650 ×3; J3490 ×4; Q9969

== ENCOUNTER → 2019-01-04 | Outpatient (CLI) | payer MEDICARE, MEDICAID ==
--- NOTE | 2019-01-04 11:52 | RADIOLOGY REPORT (SQ) ---
EXAM DESCRIPTION: FOOT LEFT 2 VIEWS COMPLETED DATE/TIME: 01/04/2019 11:43 am REASON FOR STUDY: PAIN IN LEFT FOOT M79.672 PAIN IN LEFT FOOT COMPARISON: None. NUMBER OF VIEWS: Two views. TECHNIQUE: AP and lateral radiographic images acquired of the left foot. LIMITATIONS: None. FINDINGS: MINERALIZATION: Decreased. BONES: No acute fracture or dislocation. No worrisome bone lesions. JOINTS: No dislocation. No effusion. SOFT TISSUES: No radiopaque foreign body. Mild lateral forefoot soft tissue swelling. Scattered vas cular calcifications. OTHER: No other significant finding. IMPRESSION: No evidence of acute bony abnormality. Mild forefoot soft tissue swelling. TECHNICAL DOCUMENTATION: JOB ID: [id number] [employer]- All Rights Reserved Reading location - IP/workstation name: [email or web address]
== END ==
LOC: OD 11:12
PROVIDERS: ATTEND Internal Medicine
DX: M79.672 Pain in left foot (principal); M79.89 Other specified soft tissue disorders

== ENCOUNTER → 2019-05-06 | Outpatient (CLI) | payer MEDICARE, MEDICAID ==
--- NOTE | 2019-05-06 16:46 | RADIOLOGY REPORT (SQ) ---
EXAM DESCRIPTION: HIP LEFT AP/LATERAL COMPLETED DATE/TIME: 05/06/2019 1:12 pm REASON FOR STUDY: PAIN IN LEFT HIP M25.552 PAIN IN LEFT HIP COMPARISON: None. NUMBER OF VIEWS: Two views. TECHNIQUE: AP pelvis and additional frog-leg view of the left hip. LIMITATIONS: None. FINDINGS: MINERALIZATION: Osteopenia. LEFT HIP: No fracture or dislocation. RIGHT HIP: No fracture or dislocation. PUBIS AND ISCHIUM: The ilioischial and iliopectineal lines are intact. 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 PELVIS: No fracture. SACRUM: The sacrum is obscured by overlying bowel. LOWER LUMBAR SPINE: The levoconvex curvature of the lumbar spine. SOFT TISSUES: IUD and vascular calcifications. OTHER: No other finding. IMPRESSION: No acute osseous abnormality of the left hip. TECHNICAL DOCUMENTATION: JOB ID: [id number] 2010 [employer]- All Rights Reserved Reading location - IP/workstation name: [email or web address]
== END ==
LOC: OD 13:00
PROVIDERS: ATTEND Internal Medicine
DX: M25.552 Pain in left hip (principal)